=== PATIENT | female | born 1955 | race Two or more races ===

== ENCOUNTER 2020-03-09 17:41 | Emergency (ER) | payer MEDICARE, SELFPAY ==
[~2020-03-09] VITALS: Ht 147.3 cm; Wt 66.2 kg
--- NOTE | 2020-03-09 18:57 | NUR ---
pt to room from lobby
--- NOTE | 2020-03-09 19:17 | NUR ---
PT. TO ED WITH C/O INTERMITTENT COUGH AND CP X 20 DAYS. REPORTS SOB WITH EXERCISE. DAUGHTER WITH PT. LAB AT FOR BLOOD DRAW. SPO2, B/P, AND CARDIAC MONITORS PLACED. EKG WAS DONE IN TRIAGE. ALL SAFETY MEASURES OBSERVED.
[2020-03-09 19:23] LABS: BASOPHILS # (AUTO) 0.04 x10^3/uL (0-0.1); BASOPHILS % (AUTO) 1 % (0-1); EOSINOPHILS # (AUTO) 0.15 x10^3/uL (0-0.4); EOSINOPHILS % (AUTO) 2 % (1-7); LYMPHOCYTES # (AUTO) 2.12 x10^3/uL (1-3.4); LYMPHOCYTES % (AUTO) 29 % (22-44); MD NO; MEAN CORPUSCULAR HEMOGLOBIN 29.8 pg (27.0-34.8); MEAN CORPUSCULAR HGB CONC 32.9 g/dL (32.4-35.8); MEAN CORPUSCULAR VOLUME 90.7 fL (80-100); MEAN PLATELET VOLUME 8.8 fL (7.4-10.4); MONOCYTES # (AUTO) 0.83 x10^3/uL (0.2-0.8); MONOCYTES % (AUTO) 11 % (2-9); NEUTROPHILS # (AUTO) 4.27 x10^3/uL (1.8-6.8); NEUTROPHILS % (AUTO) 58 % (42-75); PLATELET COUNT 232 x10^3/uL (130-400); RED BLOOD COUNT 4.95 x10^6/uL (3.82-5.3)
[2020-03-09] MEDS ORDERED: SODIUM CHLORIDE FLUSH 10ML SYR IVF ONE (19:30)
[2020-03-09 19:34] LABS: ALBUMIN 3.6 g/dL (3.4-5.0); ANION GAP 5 mmol/L (5-15); CALCIUM 9.1 mg/dL (8.5-10.1); CHLORIDE 112 mmol/L (98-107); CREATININE 0.61 mg/dL (0.55-1.02)
[2020-03-09 19:38] LABS: TROPONIN I < 0.015 ng/mL (0.000-0.045)
--- NOTE | 2020-03-09 20:42 | NUR ---
PT. TO CT VIA [facility].
[2020-03-09] MEDS ORDERED: OMNIPAQUE 350 MG/ML, 75ML BOTTLE ONE (21:03)
[2020-03-09 21:46] VITALS: BP 124/61
[2020-03-09] MEDS ORDERED: DEXAMETHASONE 4 MG TABLET PO ONE (22:00)
[2020-03-09] MEDS ORDERED: DEXAMETHASONE 4 MG TABLET ONE (22:19)
== END 2020-03-09 22:48 | disposition home or self-care (01) ==
LOC: ED 22:36
DX: R07.89 Other chest pain (principal); J20.9 Acute bronchitis, unspecified; B96.89 Other specified bacterial agents as the cause of diseases classified elsewhere; I44.4 Left anterior fascicular block; I45.10 Unspecified right bundle-branch block
CPT/HCPCS: 36415; 71275; 80048; 82040; 84484; 85025; 93005; 99285; Q9967